=== PATIENT | male | born 1960 | race Caucasian/White ===

== ENCOUNTER 2017-12-06 19:56 | Emergency (ER) | payer MEDICARE, MEDICAID ==
[~2017-12-06] VITALS: Ht 170.2 cm; Wt 61.7 kg
[2017-12-06] MEDS ORDERED: AMLODIPINE BESYLATE 5 MG TAB (23:32)
[2017-12-06] MEDS ORDERED: HYDRALAZINE 25 MG TABLET (23:32)
[2017-12-07] MEDS ORDERED: HYDROMORPHONE 1 MG/1 ML DISP.SYRIN IM ONE (01:45)
[2017-12-07] MEDS ORDERED: PROMETHAZINE HCL 25 MG/1 ML VIAL IM ONE (01:45)
--- NOTE | 2017-12-07 01:58 | NUR ---
Patient discharged to home in stable conditon. Written and verbal after care instructions given. Patient verbalizes understanding of instructions.
[2017-12-07] MEDS ORDERED: HYDROMORPHONE 2 MG/1 ML DISP.SYRIN ONE (02:00)
[2017-12-07] MEDS ORDERED: PROMETHAZINE HCL 25 MG/1 ML VIAL ONE (02:00)
== END 2017-12-07 01:59 | disposition home or self-care (01) ==
LOC: ER 19:58
DX: G89.29 Other chronic pain (principal); M54.2 Cervicalgia; I48.91 Unspecified atrial fibrillation; Z95.5 Presence of coronary angioplasty implant and graft; Z88.5 Allergy status to narcotic agent
CPT/HCPCS: A4663; J1170; J2550